=== PATIENT | female | born 1940 | race Caucasian/White ===

== ENCOUNTER 2022-08-29 13:23 | Outpatient (CLI) | payer MEDICARE | END 2022-08-29 13:24 | disposition home or self-care (01) | LOC: ULT 13:23 | PROVIDERS: ATTEND Internal Medicine | DX: I87.2 Venous insufficiency (chronic) (peripheral) (principal); R09.89 Other specified symptoms and signs involving the circulatory and respiratory systems | CPT/HCPCS: 93923; 93970 ==

== ENCOUNTER 2024-01-11 12:40 | Inpatient (IN) | payer MEDICARE ==
[2024-01-11 17:07] VITALS: BMI 28.1
[2024-01-11] MEDS ORDERED: Ipratropium/Albuterol 3 ML NEB NEB PRN (18:22)
[2024-01-11] MEDS ORDERED: Ondansetron PF 4 MG/2 ML Vial IVP PRN (18:22)
[2024-01-11] MEDS: Sodium Chloride 0.9% 1,000 ML IV SCH (19:38)
[2024-01-11] MEDS: Famotidine/PF 20 mg/2ml Vial SLOW IVP SCH (19:38)
[2024-01-11] MEDS: Pregabalin 25 MG CAP PO SCH (19:39)
[2024-01-11] MEDS: Senokot S 8.6-50 MG TAB PO SCH (19:39)
[2024-01-11] MEDS: Losartan 25 MG TAB PO SCH (19:39)
[2024-01-11] MEDS: Brimonidine Tartrate 0.2% Ophth Soln 5 ml Bottle EA EYE SCH (19:40)
[2024-01-11] MEDS: hydrALAZINE 20 MG/ML VIAL SLOW IVP PRN (19:41)
[2024-01-11] MEDS: Timolol 0.5% Ophth Soln 5 ml Bottle EA EYE SCH (19:41)
[2024-01-11] MEDS: Morphine 4 MG/ML VIAL SLOW IVP PRN (22:02)
[2024-01-11] MEDS: Acetaminophen 325 MG TAB PO SCH (23:10)
[2024-01-12 06:50] LABS: #Basophils 0.04 10x3/uL (0.0-0.2); %Basophils 0.4 % (0.0-1.0); %Eosinophils 1.6 % (0.0-10.0); %Lymphocytes 16.8 % (21.0-51.0); %Monocytes 11.6 % (0.0-10.0); %Neutrophils 69.2 % (42.0-75.0); Hematocrit 41.6 % (36.0-47.0); Hemoglobin 13.5 g/dL (12.0-16.0); Mean Corpuscular HGB CONC 32.5 g/dL (32.0-36.0); Mean Corpuscular Hemoglobin 30.8 pg (27.0-31.0); Mean Corpuscular Volume 94.8 fL (78.0-98.0); Mean Platelet Volume 10.8 fL (7.4-10.4); Platelet Count 228 10x3/uL (130-400); RBC Distribution Width 15.2 % (11.5-14.5); Red Blood Cell (RBC) Count 4.39 mill/uL (4.20-5.40)
[2024-01-12 06:59] LABS: PTT 32.7 sec (22.9-36.1); Prothrombin Time 13.4 sec (12.0-14.7)
[2024-01-12 07:19] LABS: Anion Gap 12 mmol/L (10-20); BUN (Urea Nitrogen) 20 mg/dL (9.8-20.1); Calc. Creatinine Clearance 57 mL/min (70-130); Carbon Dioxide 24 mmol/L (23-31); Chloride 106 mmol/L (98-107); Estimated GFR 60; Glucose 115 mg/dL (83-110); Potassium 4.1 mmol/L (3.5-5.1); Sodium 138 mmol/L (136-145)
[2024-01-12] MEDS: Ascorbic Acid 500 mg Chewable Tablet PO SCH (10:12)
[2024-01-12] MEDS: Aspirin Chewable 81 MG TAB PO SCH (10:13)
[2024-01-12] MEDS: Polyethylene Glycol 3350 17 GM Packet PO SCH (10:15)
[2024-01-12] MEDS: Losartan 25 MG TAB PO SCH (11:14)
[2024-01-12] MEDS: Lidocaine 4% Patch TD SCH (11:15)
[2024-01-12] MEDS: Labetalol HCl 100 MG/20 ML VIAL SLOW IVP PRN (20:03)
[2024-01-12] MEDS: Transdermal Patch Removal TOP SCH (20:04)
[2024-01-13 06:13] LABS: Hematocrit 42.7 % (36.0-47.0); Hemoglobin 14.2 g/dL (12.0-16.0)
[2024-01-13] MEDS: Enoxaparin 40 MG (0.4 mL) SYRINGE SC SCH (10:23)
[2024-01-13] MEDS: Famotidine 20 MG TAB PO SCH (10:26)
[2024-01-13] MEDS: Methocarbamol 500 MG TAB PO PRN (10:27)
[2024-01-15] MEDS: Ondansetron PF 4 MG/2 ML Vial IVP PRN (14:53)
[2024-01-16 07:43] VITALS: BP 145/82; TEMP 98.2
== END 2024-01-16 16:27 | DRG 200 ==
LOC: SJJU 16:14
PROVIDERS: ADMIT Surgery; ATTEND Surgery
DX: S27.0XXA Traumatic pneumothorax, initial encounter (principal); S22.42XA Multiple fractures of ribs, left side, initial encounter for closed fracture; V89.2XXA Person injured in unspecified motor-vehicle accident, traffic, initial encounter; K86.9 Disease of pancreas, unspecified; I10 Essential (primary) hypertension; Z79.82 Long term (current) use of aspirin; Z88.5 Allergy status to narcotic agent; Z66 Do not resuscitate
CPT/HCPCS: 36415; 70450; 71045; 80048; 85014; 85018; 85025; 85610; 85730; 86850; 86900; 86901; J0360; J1650; J2270; J2405; J7050; S0028